=== PATIENT | female | born 1955 | race Caucasian/White ===

== ENCOUNTER 2017-07-02 20:57 | Emergency (ER) | payer BC ==
[~2017-07-02] VITALS: Ht 175.3 cm; Wt 56.2 kg
--- NOTE | ~2017-07-02 | CT2 ---
[facility] A Service of [facility] & [facility] RADIOLOGY TEXT RESULTS PATIENT: AMPARO ALEJANDRO LOCATION: SED : 57 UNIT #: [id number] AGE: [address]: Joe Grijalva MD SEX: F ORDER DR: [id number] [address] [address] [id number] E MR#: [id number] #: [id number] NAME: AMPARO ALEJANDRO : 1955 SEX: F STUDY DATE/TIME: 07/02/2017 22:05 UNIT: SED ROOM: STUDY DESCRIPTION: CT Abd and Pelv W Cont Attending Physician: Joe Grijalva M.D. Ordering Physician: Joe Grijalva M.D. Primary Care Physician: No Primary Care Physician MEDICAL IMAGING REPORT This report is preliminary unless electronic signature is present. EXAM CT scan of the abdomen and pelvis with contrast, 07/02/2017. HISTORY Lower abdominal pain and vaginal discharge for 3 months. Discharge with odor. TECHNIQUE Spiral CT was performed through the abdomen and pelvis following intravenous contrast administration only as per clinician request. This CT exam was performed with one or more of the following radiation dose reduction techniques: automatic exposure control, adjustment of mA and/or kV according to patient size, and iterative reconstruction. FINDINGS The examination is limited by the lack of oral contrast. There is no prior exam for comparison. The examination is markedly abnormal demonstrating ill-defined, rim-enhancing cystic mass within the uterus measuring approximately 8.2 cm x 6.8 cm. A second mass is seen along the right side of the uterus which directly abuts the right ovary and measures 7.2 cm x 5.5 cm. Both masses are fluid-filled and there is a focus of gas within the within the mass along the lower aspect of the endometrial canal. Correlate clinically for infection/abscess vs fistulization with adjacent colon. Similar enhancement is seen involving the cervix and portions of the vagina. Findings are concerning for carcinoma, presumably uterine. Clinical correlation is recommended. Findings were called to the ordering clinician at 10:30 p.m. on 07/02/2017. There is moderate right hydronephrosis and hydroureter as the distal right ureter passes adjacent to the right side of the mass and is presumably partially obstructed by it. The left kidney is normal. There is a 1.2-cm low-density lesion in the right hepatic lobe with an adjacent 6 mm indeterminate low-density lesion also in the right hepatic lobe. [facility]. [facility] A Service of [facility] RADIOLOGY TEXT RESULTS PATIENT: AMPARO ALEJANDRO LOCATION: SED : 57 UNIT #: [id number] AGE: [address]: Joe Grijalva MD SEX: F ORDER DR: Metastatic disease is not excluded. There is a 5 mm probable cyst within the spleen. The pancreas is normal. The gallbladder is distended. There is a small amount of ascites. The adrenal glands are normal. There is extensive colonic diverticulosis without evidence of diverticulitis. No bowel obstruction is seen. There is a 2.2 cm x 2 cm enlarged lymph node in the aortocaval space, just above the level of the aortic bifurcation. This is presumably neoplastic. Images of the lung bases are unremarkable. Findings were called to the ordering clinician at 10:30 p.m. on 07/02/2017. IMPRESSION 1. Markedly abnormal examination demonstrating a large rim-enhancing cystic mass within the central portion of the uterus measuring 8.2 cm x 6.8 cm. A second mass is seen along the right side of the uterus which directly abuts the right ovary and measures 7.2 cm x 5.5 cm. Findings are concerning for uterine and/or endometrial carcinoma. Clinical correlation is recommended. There may be some involvement of the cervix and upper aspect of the vagina as well. Some gas is seen within the inferior aspect of the more centrally located mass near the cervix. 2. Enlarged aortocaval lymph node measuring 2.2 cm just above the level of the aortic bifurcation presumably neoplastic. 3. Moderate right hydronephrosis and hydroureter. The distal aspect of the right ureter passes through the level of the mass and is presumably partially obstructed by the mass extending off the right side of the uterus. 4. Small amount of ascites within the abdomen and pelvis. 5. Two indeterminate hypodense lesions in the right hepatic lobe. Metastatic disease is not excluded. There is a 5-mm low-density lesion within the spleen which may represent a cyst. 6. The gallbladder is distended but there is no intra or extrahepatic biliary ductal dilatation and no CT evidence of cholelithiasis is seen. 7. Extensive colonic diverticulosis. Note is made that the small focus of gas within the centrally located uterine mass could reflect fistulization with the adjacent colon, although no direct fistula is seen. Clinical correlation is recommended. Dictated by... Amilcar Cedillo M.D. THIS IS AN ELECTRONICALLY VERIFIED REPORT Amilcar Cedillo M.D. at 07/03/2017 2:32 PM KRT/tmw [facility]. [facility] A Service of [facility] & [facility] RADIOLOGY TEXT RESULTS PATIENT: AMPARO ALEJANDRO [place] [facility] [place] 57 UNIT #: [id number] AGE: [address]: Joe Grijalva MD SEX: F ORDER DR: TD: 07/03/2017 09:52 JOB #: [id number] MEDICAL IMAGING REPORT Page 1 of 1
--- NOTE | ~2017-07-02 | EKG ---
PATIENT: AMPARO ALEJANDRO UNIT #: [id number] Ventricular Rate: 110 BPM Atrial Rate: 110 BPM P-R Interval: 140 ms QRS Duration: 92 ms Q-T Interval: 352 ms QTC Calculation(Bezet): 476 ms P Newman: 57 degrees Calculated R Newman: -51 degrees Calculated T Newman: 53 degrees Diagnosis Line: Sinus tachycardia Diagnosis Line: Possible Left atrial enlargement Diagnosis Line: Left anterior fascicular block Diagnosis Line: Septal infarct , age undetermined Diagnosis Line: Abnormal ECG Diagnosis Line: No previous ECGs available Diagnosis Line: Confirmed by MIRTHA SANZ MD ([id number]) on Diagnosis Line: 07/05/2017 8:03:31 AM INTERPRETING MD: UMU DIAZ
[2017-07-02] MEDS ORDERED: NO MEDICATIONS (21:05)
[2017-07-02 21:39] LABS: BASOPHIL# 0.1 X10e3 (0-0.3); EOSINOPHIL# 0.1 X10e3 (0-0.7); EOSINOPHIL% 0.3 % (0.0-7.0); LYMPHOCYTE# 1.3 X10e3 (1.0-3.5); LYMPHOCYTE% 6.4 % (17.0-45.0); MEAN PLATELET VOLUME 7.8 FL (6.5-11.5); MONOCYTE# 0.5 X10e3 (0-1.0); MONOCYTE% 2.5 % (3.0-12.0); NEUTROPHIL# 18.7 X10e3 (1.5-7.1)
[2017-07-02 21:41] LABS: BASOPHIL% 0.4 % (0-2.5); HEMATOCRIT 19.8 % (35.0-45.0); MEAN CELL VOLUME 59.2 FL (83-96); MEAN CORPUSCULAR HEMOGLOBIN 15.9 PG (28-34); MEAN CORPUSCULAR HGB CONC 26.8 g/dL (30-36); NEUTROPHIL% 90.4 % (40-75); PLATELET COUNT 852 X10e3 (140-420); RED BLOOD COUNT 3.35 X10e (3.90-5.30); RED CELL DISTRIBUTION WIDTH 20.8 % (11.0-15.5); WHITE BLOOD COUNT 20.7 X10e3 (4.0-10.5)
[2017-07-02 21:46] LABS: DIFF IND NO; HEMOGLOBIN 5.3 gm/dL (12.0-16.0)
[2017-07-02 21:55] LABS: ALBUMIN SERUM 2.8 g/dL (3.5-5.0); BILIRUBIN, DIRECT 0.2 mg/dL (0.0-0.2); BILIRUBIN,INDIRECT 0.5 mg/dL (0.0-0.9); BILIRUBIN,TOTAL 0.7 mg/dL (0.2-2.0); CALCIUM SERUM 8.9 mg/dL (8.4-10.2); GLOM FILT RATE Estimated 60.8 mL/min (>60); POTASSIUM 4.8 mmol/L (3.5-5.1); PROTEIN TOTAL SERUM 7.1 g/dL (6.0-8.3)
[2017-07-02 22:02] LABS: INR 1.2; PROTHROMBIN TIME (PATIENT) 14.1 SECONDS (9.5-12.4)
[2017-07-02 22:05] LABS: POC - CREATININE 1.15 mg/dL (0.44-1.03)
[2017-07-02 22:09] LABS: PARTIAL THROMBOPLASTIN TIME 25.2 SECONDS (25.6-38.1)
[2017-07-02 22:35] LABS: POC - CKMB <1.0 ng/mL (0.0-7.9); POC - TROPONIN <0.05 ng/mL (<=0.05)
[2017-07-05 08:00] LABS: CHLAMYDIA TRACH Not Detected (Not Detected); N GONOR Not Detected (Not Detected)
== END 2017-07-03 02:41 ==
LOC: SED 20:57
PROVIDERS: Emergency Medicine
DX: R59.0 Localized enlarged lymph nodes (principal); D64.9 Anemia, unspecified; R10.9 Unspecified abdominal pain; F17.200 Nicotine dependence, unspecified, uncomplicated
CPT/HCPCS: 36415; 36430; 74177; 80048; 80076; 82553; 82565; 83605; 83690; 83874; 84484; 85025; 85610; 85730; 86850; 86900; 86901; 86922; 87040; 87491; 87591; 87808; 87905; 93005; 96361; 96374; 96375; 99291; G0480; J1170; J2405; P9016; Q9967